=== PATIENT | male | born 1975 | race Caucasian/White ===

== ENCOUNTER 2023-09-23 07:15 | Emergency (ER) | payer BC ==
[2023-09-23] MEDS ORDERED: Sodium Chloride 0.9% 1,000 ML IV ONE (07:24)
[2023-09-23] MEDS ORDERED: Sodium Chloride 0.9% 10 ML Syringe FLUSH PRN ×3 (07:55→09:20)
[2023-09-23] MEDS ORDERED: Piperacillin/Tazobactam 3.375 GM in Sodium Chloride 0.9% 100 ML IV SCH (08:15)
[2023-09-23 09:09] LABS: HEMATOCRIT 46.9 % (40.0-54.0); HEMOGLOBIN 16.5 g/dL (13.0-18.0); MEAN CORPUSCULAR HEMOGLOBIN 31.4 pg (27.0-32.0); MEAN CORPUSCULAR HGB CONC 35.2 g/dL (31.0-35.0); MEAN CORPUSCULAR VOLUME 89 fL (76-96); MEAN PLATELET VOLUME 10.5 fL (6.0-10.0); PLATELET COUNT,PLT 244 K/uL (150-400); RED BLOOD CELL COUNT 5.25 M/uL (4.50-6.50); RED CELL DISTRIBUTION WIDTH 13.4 % (11.0-16.0)
[2023-09-23 09:15] LABS: WHITE BLOOD CELL COUNT,WBC 21.4 K/uL (4.0-11.0)
[2023-09-23] MEDS ORDERED: Sodium Chloride 0.9% 50 ML SDV FLUSH ONE (09:16)
[2023-09-23] MEDS ORDERED: Iopamidol 612 MG/ML 100 ML Bottle IV SCH (09:30)
[2023-09-23 09:39] LABS: PLATELET COUNT ESTIMATE ADEQUATE
[2023-09-23] MEDS ORDERED: metroNIDAZOLE/Normal Saline 500 MG in Premix Bag 1 BAG IV ONE (10:25)
[2023-09-23 10:30] LABS: ANION GAP 16.3 mmol/L (5.0-15.0); BUN/CREATININE RATIO 25.6 (6-25); CALCIUM 9.3 mg/dL (8.5-10.1); CARBON DIOXIDE,CO2 22.4 mmol/L (21.0-32.0); CREATININE 1.6 mg/dL (0.70-1.30); EST CRCL DRUG DOSING (CG) 61.07 mL/min; POTASSIUM,K 3.7 mmol/L (3.5-5.1)
[2023-09-23] MEDS ORDERED: Ondansetron 4 MG/2 ML SDV IVPUSH ONE (10:40)
[2023-09-23] MEDS ORDERED: HYDROmorphone 2 MG/ML Syringe IVPUSH ONE (10:40)
[2023-09-23] MEDS ORDERED: HYDROmorphone 2 MG/ML Syringe ONE (10:41)
[2023-09-23] MEDS ORDERED: Ondansetron 4 MG/2 ML SDV ONE (10:41)
[2023-09-23] MEDS ORDERED: methylPREDNISolone Sodium Succinate 125 MG/2 ML SDV IVPUSH ONE ×2 (11:59→12:01)
[2023-09-23] MEDS ORDERED: methylPREDNISolone Sodium Succinate 125 MG/2 ML SDV ONE (11:59)
[2023-09-23] MEDS ORDERED: Ampicillin/Sulbactam Na 3 GM in Sodium Chloride 0.9% 100 ML IV SCH (12:00)
[2023-09-23 13:46] VITALS: BP 126/88; PULSE 73
== END 2023-09-23 12:06 ==
LOC: LB.ED 07:15
DX: J36 Peritonsillar abscess (principal); F17.210 Nicotine dependence, cigarettes, uncomplicated
CPT/HCPCS: 36415; 70491; 80048; 85025; 87040; 96361; 96365; 96367; 96375; 99285-25; J1170; J1836; J2405; J2543; J2930; J3490; J7030; Q9967